=== PATIENT | female | born 1990 | race Caucasian/White ===

== ENCOUNTER 2016-03-28 09:17 | Emergency (ER) | payer OTHER, MEDICAID ==
--- NOTE | 2016-03-28 09:20 | EDPHY ---
H & P Time Seen by Provider: 03/28/16 09:19 HPI/ROS: CHIEF COMPLAINT: Bilateral wrist pain after hand cuffing HISTORY OF PRESENT ILLNESS: 25-year-old left hand dominant female arrives via ambulance accompanied by police for medical clearance prior to incarceration. She is complaining of acute left wrist pain after she was placed in handcuffs. Denies antecedent bilateral wrist pain prior to placement of handcuffs. Denies paresthesia. Denies break in skin. Denies direct fall or foosh injury. PHYSICAL EXAM (Prior to examination, patient consented to physical exam, hands were washed and my usual and customary physical exam procedures followed) 1) GENERAL: Well-developed, well-nourished, alert and oriented. She appears angry 2) HEAD: Normocephalic 3) HEENT: Pupils equal, round, reactive to light bilaterally. 4) LUNGS: Breathing comfortably. 5) MUSCULOSKELETAL: With handcuffs temporarily removed each wrist is individual examined. There is no discoloration to bilateral wrist. No focal areas of tenderness. I am unable to elicit any pain bilaterally. No anatomic snuffbox pain bilaterally. No deformity bilaterally. Soft compartments. Normal coloration. 6) SKIN: intact bilaterally with no signs of infection, no signs of trauma bilaterally 7) VASCULAR: pulses and cap refill present are brisk 8) NEUROLOGIC: Radial, ulnar, median nerve function intact with no deficits appreciated on exam . Bilaterally there is no wrist drop DIFFERENTIAL DIAGNOSIS: in no particular order including but not limited to fracture, sprain, compartment syndrome Xray of the bilateral wrist interpreted by myself: no definitive acute osseous abnormality Allergies/Adverse Reactions: No Known Allergies Allergy (Unverified 03/28/16 09:24) Home Medications: Medication Instructions Recorded NK [No Known Home Meds] 03/28/16 MDM/Departure - MDM ED Course/Re-evaluation: This patient has bilateral wrist which are nontender. There is no deformity. No angulation. No breakdown of skin. No signs of infection/cellulitis. The patient had initially requested x-rays then had changed her mind and then had requested them again. On further evaluation I think that it is unlikely that acute traumatic osseous injury is present. I have explained this to her and she concurs. I do not think that x-rays are currently indicated and she is cleared for incarceration. In addition, she has no neurologic deficits present on exam. - Depart Disposition: Home, Routine, Self-Care Clinical Impression: Medical clearance for incarceration Condition: Good Instructions: Wrist Injury (ED) Additional Instructions: Return to the ER immediately if you experience discoloration, have worsening pain, numbness, tingling, or any other symptoms that concern you. Referrals: Jack Tate MD [Medical Doctor] - 2-3 days, call for appt.
== END 2016-03-28 10:13 | disposition home or self-care (01) ==
LOC: EDUNIT#
DX: Z04.8 Encounter for examination and observation for other specified reasons (principal)